=== PATIENT | female | born 1960 | race Caucasian/White ===

== ENCOUNTER 2018-01-26 05:24 | Day surgery (SDC) | payer OTHER, MEDICAID ==
[2018-01-21 12:02] VITALS: BP 135/85
[~2018-01-26] VITALS: Ht 175.3 cm; Wt 95.9 kg
[~2018-01-26 05:24] MED LIST: CYCL-259 PO; ESCI10TA PO; FURO20TA3 PO; HYDR-3241 PO; LEVO50TA5 PO; NAPR-685 PO; NEBI10TA3 PO; POTA10TA5 PO; ROSU20TA PO
[2018-01-26] MEDS ORDERED: LACTATED RINGERS 1,000 ML IV SCH (06:04)
[2018-01-26] MEDS ORDERED: BUPIVACAINE/PF 0.5% ONE (06:16)
[2018-01-26] MEDS ORDERED: EPINEPHRINE 1 MG/ML, 1ML ONE (06:16)
[2018-01-26] MEDS ORDERED: BUPIVACAINE/PF 0.25% ONE (06:16)
[2018-01-26] MEDS ORDERED: LIDOCAINE-MPF 1%, 2ML INFIL ONE (06:30)
[2018-01-26] MEDS ORDERED: CLINDAMYCIN 150 MG/ML, 6ML ONE (06:54)
[2018-01-26] MEDS ORDERED: ONDANSETRON ODT 8 MG ONE (06:58)
[2018-01-26] MEDS ORDERED: CEFAZOLIN 1,000 MG ONE (07:02)
[2018-01-26] MEDS ORDERED: DEXAMETHASONE 4 MG/ML, 1ML ONE (07:02)
[2018-01-26] MEDS ORDERED: PROPOFOL 10 MG/ML, 20ML ONE (07:02)
[2018-01-26] MEDS ORDERED: MIDAZOLAM 1 MG/ML, 5ML ONE (07:02)
[2018-01-26] MEDS ORDERED: LABETALOL 5MG/ML 40ML VIAL ONE (07:02)
[2018-01-26] MEDS ORDERED: LORazepam 2 MG/ML, 1ML IVPush PRN (08:00)
[2018-01-26] MEDS ORDERED: PROMETHAZINE 25 MG/ML, 1ML IM PRN (08:00)
[2018-01-26] MEDS ORDERED: HYDROmorphone 1 MG/ML, 1ML IV PRN (08:00)
[2018-01-26] MEDS ORDERED: hydrALAzine 20 MG/ML, 1ML IV PRN (08:00)
[2018-01-26] MEDS ORDERED: ALBUTEROL SULFATE 2.5 MG/3 ML NPPB PRN (08:00)
[2018-01-26] MEDS ORDERED: LABETALOL 5MG/ML, 20ML IV PRN (08:00)
[2018-01-26] MEDS ORDERED: ACETAMINOPHEN 325 MG TABLET PO PRN (08:00)
[2018-01-26] MEDS ORDERED: PROMETHAZINE 25 MG SUPP PR PRN (08:00)
[2018-01-26] MEDS ORDERED: PROMETHAZINE 25 MG/ML, 1ML IV PRN (08:00)
[2018-01-26] MEDS ORDERED: FENTANYL PF 100 MCG/2ML ONE (08:07)
[2018-01-26] MEDS ORDERED: OXYcodone 5 MG/5 ML ORAL.SOL UDC ONE ×2 (08:07→08:38)
[2018-01-26] MEDS ORDERED: ACETAMINOPHEN 650 MG/20.3 ML UDC ONE (08:07)
[2018-01-26] MEDS: FENTANYL PF 100 MCG/2ML IV PRN ×2 (08:09→08:27)
[2018-01-26] MEDS: OXYcodone 5 MG/5 ML ORAL.SOL UDC PO PRN ×2 (08:13→08:41)
[2018-01-26] MEDS ORDERED: HYDROmorphone 1 MG/ML, 1ML ONE (08:38)
[2018-01-26] MEDS ORDERED: PROMETHAZINE 25 MG/ML, 1ML ONE (08:43)
== END 2018-01-26 10:30 ==
LOC: OUT 05:24
PROVIDERS: ATTEND Orthopaedic Surgery
DX: M25.332 Other instability, left wrist (principal); I10 Essential (primary) hypertension; E78.5 Hyperlipidemia, unspecified; Z88.6 Allergy status to analgesic agent; Z88.1 Allergy status to other antibiotic agents; Z88.0 Allergy status to penicillin; Z88.8 Allergy status to other drugs, medicaments and biological substances
CPT/HCPCS: 25320; 73100; 76000; J0690; J1100; J1170; J2250; J2550; J2704; J3010; J3490; J7120; J0171; Q0162; C1713

== ENCOUNTER 2018-04-04 11:20 | Day surgery (SDC) | payer OTHER, MEDICAID ==
[~2018-04-04] VITALS: Ht 175.3 cm; Wt 94.6 kg
[2018-04-04] MEDS ORDERED: LACTATED RINGERS 1,000 ML IV SCH (12:19)
[2018-04-04 12:43] VITALS: BP 134/91
[2018-04-04] MEDS ORDERED: BUPIVACAINE/PF-EPI 0.5% 1:200K ONE (13:27)
[2018-04-04] MEDS ORDERED: FENTANYL PF 100 MCG/2ML ONE (13:54)
[2018-04-04] MEDS ORDERED: ONDANSETRON 2MG/ML, 2ML ONE (14:03)
[2018-04-04] MEDS ORDERED: CEFAZOLIN 1,000 MG ONE ×2 (14:03)
[2018-04-04] MEDS ORDERED: METOCLOPRAMIDE 5 MG/ML, 2ML ONE (14:03)
[2018-04-04] MEDS ORDERED: PROPOFOL 10 MG/ML, 20ML ONE (14:03)
[2018-04-04] MEDS ORDERED: DEXAMETHASONE 4 MG/ML, 1ML ONE (14:03)
[2018-04-04] MEDS ORDERED: BUPIVACAINE/PF-EPI 0.5% 1:200K INFIL ONE (14:05)
[2018-04-04] MEDS ORDERED: ACETAMINOPHEN 325 MG TABLET PO PRN (14:30)
[2018-04-04] MEDS ORDERED: LABETALOL 5MG/ML, 20ML IV PRN (14:30)
[2018-04-04] MEDS ORDERED: HYDROmorphone 1 MG/ML, 1ML IV PRN (14:30)
[2018-04-04] MEDS ORDERED: ONDANSETRON 2MG/ML, 2ML IV PRN (14:30)
[2018-04-04] MEDS ORDERED: EPHEDRINE 50 MG/ML, 1ML IVPush PRN (14:30)
[2018-04-04] MEDS ORDERED: OXYcodone 5 MG/5 ML ORAL.SOL UDC PO PRN (14:30)
[2018-04-04] MEDS ORDERED: hydrALAzine 20 MG/ML, 1ML IV PRN (14:30)
[2018-04-04] MEDS ORDERED: METOPROLOL 1 MG/ML, 5ML IV PRN (14:30)
[2018-04-04] MEDS ORDERED: ALBUTEROL SULFATE 2.5 MG/3 ML NPPB PRN (14:30)
[2018-04-04] MEDS ORDERED: FENTANYL PF 100 MCG/2ML IV PRN (14:30)
== END 2018-04-04 15:45 ==
LOC: OUT 11:20
PROVIDERS: ATTEND Orthopaedic Surgery
DX: Z47.2 Encounter for removal of internal fixation device (principal); I10 Essential (primary) hypertension; E03.9 Hypothyroidism, unspecified; Z88.1 Allergy status to other antibiotic agents; Z88.0 Allergy status to penicillin; Z88.8 Allergy status to other drugs, medicaments and biological substances; Z79.899 Other long term (current) drug therapy; Z87.891 Personal history of nicotine dependence
CPT/HCPCS: 20680; 73100; 76000; J0690; J1100; J2405; J2704; J2765; J3010; J7120